=== PATIENT | male | born 1995 | race Caucasian/White ===

== ENCOUNTER 2021-12-07 08:33 | Emergency (ER) | payer BC ==
[2021-12-07] MEDS ORDERED: Pepcid 20 MG VIAL IV ONE ×2 (08:38→08:48)
[2021-12-07] MEDS ORDERED: PROVENTIL 2.5 MG/3 ML NEB IH ONE ×2 (08:38→08:43)
[2021-12-07] MEDS ORDERED: solu-MEDROL 125 MG, Sterile H2O 10 ml 2 ML IV ONE ×2 (08:38)
[2021-12-07] MEDS ORDERED: BENADRYL 50 MG/ML IV ONE (08:38)
[2021-12-07 08:48] VITALS: PULSE 98
[2021-12-07] MEDS ORDERED: solu-MEDROL ONE (08:48)
[2021-12-07] MEDS ORDERED: BENADRYL 50 MG/ML ONE (08:48)
[2021-12-07] MEDS ORDERED: Sterile H2O 10 ml IJ ONE (08:48)
--- NOTE | 2021-12-07 10:03 | ERPHSYRPT ---
- History of Present Illness Time Seen by Provider: 12/07/21 08:37 Source: patient Exam Limitations: no limitations Patient Subjective Stated Complaint: Pt took his morning meds and complains of hives and swelling of his lips and itching Triage Nursing Assessment: Pt brought to the ER by someone else, vitals wnl, denies pain, hives scattered over body, lips swelling, denies breathing issues, denies throat itching, eyes swollen, has been taking Trazodone for a week which is a new med, denies any other issues Physician History: 26 years old presented to the ER with chief complaint of generalized hives, itching, burning sensation with some swelling of upper lip started almost an hour prior to arrival without any difficulty breathing, choking sensation/throat closing sensation or wheezing. Does report having similar symptoms almost a year ago with no obvious identifiable cause. Unable to point to words any specific cause for this episode as well. Timing/Duration: hour(s) (1), sudden, worse Quality: burning, itchy Severity: moderate Location: generalized Possible Causes: no cause identified Associated Symptoms: No difficulty breathing Allergies/Adverse Reactions: No Known Drug Allergies Allergy (Verified 12/07/21 08:41) Home Medications: Eluxadoline [Viberzi] 75 mg PO DAILY 12/07/21 [History] Lisdexamfetamine Dimesylate [Vyvanse] 1 tab PO DAILY 12/07/21 [History] Trazodone HCl 50 mg [Desyrel 50 mg] 50 mg PO HS 12/07/21 [History] Travel Risk - International Travel Have you traveled outside of the country in past 3 weeks: No - Coronavirus Screening Are you exhibiting any of the following symptoms?: No Close contact with a COVID-19 positive Pt in past 14-21 Days: No - Vaccine Status Have you recieved a Covid-19 vaccination: No - Review of Systems Constitutional: No Symptoms Eyes: No Symptoms Ears, Nose, & Throat: No Symptoms Respiratory: No Symptoms Cardiac: No Symptoms Abdominal/Gastrointestinal: No Symptoms Genitourinary Symptoms: No Symptoms Musculoskeletal: No Symptoms Skin: Rash Neurological: No Symptoms Psychological: No Symptoms Endocrine: No Symptoms Hematologic/Lymphatic: No Symptoms Immunological/Allergic: No Symptoms - Past Medical History Pertinent Past Medical History: Yes GI Medical History: Irritable Bowel Psycho-Social History: Attention Deficit Disorder - Past Surgical History Past Surgical History: Yes - Social History Smoking Status: Never smoker Exposure to second hand smoke: No Drug Use: none Patient Lives Alone: Yes - Nursing Vital Signs Nursing Vital Signs: Initial Vital Signs Temperature 97.7 F 12/07/21 08:34 Pulse Rate 97 H 12/07/21 08:34 Blood Pressure 104/57 12/07/21 08:34 O2 Sat by Pulse Oximetry 98 12/07/21 08:34 Pain Scale Pain Intensity 0 - Physical Exam General Appearance: no apparent distress, alert Eye Exam: PERRL/EOMI, eyes nml inspection Ears, Nose, Throat Exam: normal ENT inspection, TMs normal, pharynx normal, moist mucous membranes Neck Exam: normal inspection, non-tender, supple, full range of motion Respiratory Exam: normal breath sounds, lungs clear Cardiovascular Exam: regular rate/rhythm, normal heart sounds Gastrointestinal/Abdomen Exam: soft, No tenderness Back Exam: normal range of motion, No CVA tenderness Extremity Exam: normal inspection, normal range of motion, pelvis stable Neurologic Exam: alert, oriented x 3, cooperative, surfboard maker II-XII nml as tested Skin Exam: rash, other (Wheals/hives all over especially in the upper extremities and anterior chest) SpO2 Interpretation: normal SpO2: 97 O2 Delivery: Room Air Ordered Tests: Active Orders 24 hr Category Date Time Status IV Insertion STAT Care 12/07/21 08:38 Active Respiratory Therapy Assessment DAILY RT 12/07/21 08:47 Active Medication Summary Discontinued Medications Generic Name Dose Route Start Last Admin Trade Name Casimiroq PRN Reason Stop Dose Admin Albuterol Sulfate 2.5 mg 12/07/21 08:38 12/07/21 08:44 Albuterol Sulfate 2.5 Mg/3 Ml Neb IH 12/07/21 08:39 2.5 mg STAT ONE Administration Albuterol Sulfate Confirm 12/07/21 08:43 Albuterol Sulfate 2.5 Mg/3 Ml Neb Administered 12/07/21 08:44 Dose 2.5 mg IH .STK-MED ONE Methylprednisolone Sodium 0 mg 12/07/21 08:38 12/07/21 08:52 Succinate 125 mg/ Sterile IV 12/07/21 08:39 125 mg Water 2 ml STAT ONE Administration Diphenhydramine HCl 25 mg 12/07/21 08:38 12/07/21 08:50 Diphenhydramine Hcl 50 Mg/Ml Vial IV 12/07/21 08:39 25 mg STAT ONE Administration Diphenhydramine HCl Confirm 12/07/21 08:48 Diphenhydramine Hcl 50 Mg/Ml Vial Administered 12/07/21 08:49 Dose 50 mg .ROUTE .STK-MED ONE Famotidine 20 mg 12/07/21 08:38 12/07/21 08:51 Famotidine 20 Mg/1 Vial IV 12/07/21 08:39 20 mg STAT ONE Administration Famotidine Confirm 12/07/21 08:48 Famotidine 20 Mg/1 Vial Administered 12/07/21 08:49 Dose 20 mg IV .STK-MED ONE Methylprednisolone Sodium Succinate Confirm 12/07/21 08:48 Methylprednis Sod Succ 125 Mg/2 Ml Vial Administered 12/07/21 08:49 Dose 125 mg .ROUTE .STK-MED ONE Sterile Water Confirm 12/07/21 08:48 Water For Injection,Sterile 10 Ml Vial Administered 12/07/21 08:49 Dose 10 ml IJ .STK-MED ONE - Progress Progress: improved Progress Note: 12/07/21 09:59 Is given Solu-Medrol/Benadryl/Pepcid/albuterol, on reevaluation all the hives/rash is improved. We will continue with these meds to go home and will give EpiPen. No difficulty breathing to begin with. Lungs clear to auscultation. Outpatient primary care follow-up recommended and may need referral for fitness teacher Counseled pt/family regarding: diagnosis, need for follow-up - Departure Departure Disposition: Home Clinical Impression: Allergic reaction Condition: Stable Critical Care Time: No Referrals: EMMANUELLE HAYES [Primary Care Provider] - Follow up/PCP as directed (1-2 days for reevaluation) Instructions: Adverse Drug Reactions, Adult (DC), Anaphylaxis (DC) Additional Instructions: Follow-up with primary care for reevaluation and may need referral for fitness teacher. Use EpiPen as needed for anaphylaxis. Return to ER for worsening rash, difficulty breathing/wheezing, feeling dizzy lightheaded etc. Prescriptions: Diphenhydramine HCl 25 mg [Benadryl 25 mg Capsule] 25 mg PO Q4H PRN PRN # 20 cap PRN Reason: Allergies Prednisone 20 mg [Deltasone 20 mg] 60 mg PO DAILY 5 Days #15 tablet Famotidine 20 mg [Pepcid 20 MG] 20 mg PO BID #10 tablet
[2021-12-07 10:07] VITALS: BP 124/79; O2SAT 99
== END 2021-12-07 10:12 | disposition home or self-care (01) ==
LOC: ED 08:33
DX: T78.40XA Allergy, unspecified, initial encounter (principal); L50.0 Allergic urticaria; Z79.52 Long term (current) use of systemic steroids; Z79.899 Other long term (current) drug therapy; K58.9 Irritable bowel syndrome, unspecified
CPT/HCPCS: 36000; 94640; 96374; 96375; 99284; J1200; J2930; J7609; A9270-GY